=== PATIENT | female | born 1995 | race Caucasian/White ===

== ENCOUNTER 2020-03-20 15:18 | Emergency (ER) | payer OTHER, SELFPAY ==
--- NOTE | 2020-03-20 15:19 | W.ED.GENADLT ---
HPI - General Adult General: Stated complaint: NEEDLE STICK AT WORK Time Seen by Provider: 03/20/20 15:19 Source: patient Mode of arrival: ambulatory Limitations: no limitations History of Present Illness: HPI narrative: 5-year-old female who is here in the ER after needlestick injury. She was pulling a needle from a port states that popped and then stuck her in the finger. This happened just prior to arrival. Happened in the emergency room. She has no lacerations. No known medical issues. Review of Systems General: Reports: 10 or more systems reviewed and unremarkable except in HPI and below Physical Exam Const: COMMON NORMALS: no acute distress and patient oriented x3 HENMT: COMMON NORMALS: normocephalic and atraumatic HEAD & SCALP: normocephalic and atraumatic Eye: COMMON NORMALS: EOMs intact bilaterally Neck/C-Spine: COMMON NORMALS: supple Chest: COMMONS NORMALS: normal inspection of the chest Resp: COMMON NORMALS: normal respiratory effort Extremity: COMMON NORMALS: normal to inspection Neuro: COMMON NORMALS: patient oriented x3 Psych: COMMON NORMALS: mental status grossly normal MDM - General Adult MDM Narrative: Medical decision making narrative: Patient presents with a needlestick injury. Patient's blood is drawn and she is stable for discharge. Discharge Plan Discharge Patient Disposition: Home Clinical Impression: Needlestick injury accident Condition: Stable Discharge Orders: Discharge ED (Routine); Ordered 03/20/20 Ordered By: Garth Michael Discharge Diet: Advance as tolerated Discharge Activity: Limit activity as instructed Patient Instructions: Needle Stick Injuries (ED) Coding Level of Care Code ED Outbound Sales Specialist for Isabela Menon Exam Comprehensive
[2020-03-20 15:33] VITALS: PULSE 87; RESP 14; O2SAT 98
[2020-03-20 17:25] LABS: HIV 1 & 2 Antibody Non-Reactive (Non-Reactiv); HIV 1 & 2 Antigen Non-Reactive (Non-Reactiv)
[2020-03-20 17:27] LABS: Hepatitis A Antibody IgM Non-Reactive (Nonreactive); Hepatitis B Core AB, Total Non-Reactive (Nonreactive); Hepatitis B Surface AB 3.5 (0-8.5); Hepatitis B Surface Antigen Non-Reactive (Nonreactive); Hepatitis C Virus Antibody Non-Reactive (Nonreactive)
== END 2020-03-20 15:53 | disposition home or self-care (01) ==
LOC: ER 15:27
PROVIDERS: Emergency Provider Emergency Medicine
DX: S61.239A Puncture wound without foreign body of unspecified finger without damage to nail, initial encounter (principal); W46.1XXA Contact with contaminated hypodermic needle, initial encounter; Y99.0 Civilian activity done for income or pay
CPT/HCPCS: 12345; 86705; 86706; 86709; 86803; 87340; 87806; 99282